=== PATIENT | female | born 1990 | race Caucasian/White ===

== ENCOUNTER 2022-01-28 22:59 | Emergency (ER) | payer OTHER ==
[~2022-01-28] VITALS: Ht 157.5 cm; Wt 75.0 kg
[2022-01-28] MEDS ORDERED: DexAMETHasone SOD PHOS 10MG/1ML VIAL INJ IV ONE (23:15)
[2022-01-28] MEDS ORDERED: FAMOTIDINE (10MG/ML) 2ML VL IV ONE (23:15)
[2022-01-29 00:41] VITALS: BP 124/82
[2022-01-29] MEDS ORDERED: PRED20TA2 PO (01:01)
== END 2022-01-29 01:13 | disposition home or self-care (01) ==
LOC: ER 22:59
DX: L23.9 Allergic contact dermatitis, unspecified cause (principal); Z88.8 Allergy status to other drugs, medicaments and biological substances
CPT/HCPCS: 96374; 96375; 99284; J1100; J3490

== ENCOUNTER 2022-10-13 00:17 | Emergency (ER) | payer OTHER ==
[~2022-10-13] VITALS: Ht 157.5 cm; Wt 75.0 kg
[~2022-10-13 00:17] MED LIST: PRED20TA2 PO
[2022-10-13] MEDS ORDERED: KETOROLAC TROMETH 30 MG/ML 1ML VIAL IV ONE (02:00)
[2022-10-13] MEDS ORDERED: HYDROcodone-ACET 5/325MG TAB PO ONE (02:15)
[2022-10-13] MEDS ORDERED: FAMOTIDINE (10MG/ML) 2ML VL IV ONE (02:15)
[2022-10-13 02:39] LABS: Basophils # (auto) 0 10 ^3/uL (0-0.2); Basophils % (auto) 0.2 % (0.0-2.0); Eosinophils # (auto) 0 10 ^3/uL (0-0.8); Eosinophils % (auto) 0.1 % (0.0-7.0); Hemoglobin 14.4 g/dL (12.2-16.2); Lymphocytes # (auto) 1.3 10 ^3/uL (0.4-5.4); Lymphocytes % (auto) 8.9 % (10.0-50.0); Mean Corpuscular Hgb Conc. 34.3 g/dL (32.0-36.0); Mean Corpuscular Volume 87.5 fL (80.0-100.0); Monocytes # (auto) 0.6 10 ^3/uL (0-1.3); Neutrophils # (auto) 12.8 10 ^3/uL (1.6-8.6); Neutrophils % (auto) 86.8 % (37.0-80.0); Red Blood Cells 4.79 10^6/uL (4.0-5.20); Red Cell Distribution Width 13.2 % (11.8-14.3); White Blood Cell 14.8 10^3/uL (4.4-10.8)
[2022-10-13 02:55] LABS: Alanine Aminotransferase 94 U/L (13-56); Albumin 3.5 g/dL (3.4-5.0); Anion Gap 7 (5-15); Aspartate Aminotransferase 129 U/L (15-37); BUN/Creatinine Ratio 15.6 (10.0-20.0); Blood Urea Nitrogen 10 mg/dL (7-18); Calcium 8.9 mg/dL (8.5-10.1); Carbon Dioxide 20 mmol/L (21-32); Chloride 110 mmol/L (98-107); GFR African American 137 mL/min; GFR Non-African American 113 mL/min; Glucose 107 mg/dL (74-106); Lipase 121 U/L (73-393); Magnesium 2.3 mg/dL (1.6-2.6); Potassium 3.8 mmol/L (3.5-5.1); Sodium 137 mmol/L (136-145)
[2022-10-13 02:58] LABS: Alkaline Phosphatase 155 U/L (45-117); Bilirubin, Total 0.6 mg/dL (0.2-1.0); Total Protein 7.7 g/dL (6.4-8.2)
[2022-10-13 06:32] LABS: Urine Bacteria FEW /hpf (None Seen); Urine Blood Negative /uL (Negative); Urine Mucus FEW (None Seen); Urine Specific Gravity 1.025 (1.001-1.035); Urine WBC 2 /hpf (0 - 5)
[2022-10-13] MEDS ORDERED: OXY5T GT (06:39)
[2022-10-13] MEDS ORDERED: ACET-1079 PO (06:39)
[2022-10-13] MEDS ORDERED: IBUP400T23 PO (06:39)
[2022-10-13] MEDS ORDERED: TAMS1CAP25 PO (06:44)
[2022-10-13 09:00] VITALS: BP 119/72
== END 2022-10-13 09:07 | disposition home or self-care (01) ==
LOC: EDUNIT# 00:17 → EDBD 00:17 → ER 00:17
DX: K80.20 Calculus of gallbladder without cholecystitis without obstruction (principal); N20.0 Calculus of kidney; J45.909 Unspecified asthma, uncomplicated; Z90.710 Acquired absence of both cervix and uterus; Z79.1 Long term (current) use of non-steroidal anti-inflammatories (NSAID); Z79.899 Other long term (current) drug therapy
CPT/HCPCS: 36415; 74176; 76705; 80053; 81001; 83690; 83735; 85025; 96374; 96375; 99285; J1885; J3490

== ENCOUNTER 2022-10-29 16:03 | Inpatient (IN) | payer OTHER ==
[~2022-10-29] VITALS: Ht 157.5 cm; Wt 79.4 kg
[~2022-10-29 16:03] MED LIST changes: +ACET-1079 PO; +IBUP1TAB4 PO; +OXY5T GT; +TAMS1CAP25 PO
[2022-10-29] MEDS ORDERED: SODIUM CHLORIDE 0.9% 1,000 ML IVB ONE (16:30)
[2022-10-29] MEDS ORDERED: PANTOPRAZOLE 40 MG/10 ML VIAL INJ IV ONE (16:30)
[2022-10-29] MEDS ORDERED: MORPHINE SULFATE 4 MG/ML SYR/VIAL IV ONE (16:30)
[2022-10-29] MEDS ORDERED: ONDANSETRON HCL 4 MG/2 ML VIAL IV ONE ×2 (16:30→19:30)
[2022-10-29 16:52] LABS: Urine Bacteria NONE SEEN /hpf (None Seen); Urine Blood Negative /uL (Negative); Urine Hyaline Cast FEW /lpf (0 - 2); Urine Mucus FEW (None Seen); Urine Specific Gravity 1.023 (1.001-1.035); Urine WBC 1 /hpf (0 - 5)
[2022-10-29 17:10] LABS: Basophils # (auto) 0 10 ^3/uL (0-0.2); Basophils % (auto) 0.2 % (0.0-2.0); Eosinophils # (auto) 0 10 ^3/uL (0-0.8); Eosinophils % (auto) 0.4 % (0.0-7.0); Hematocrit 40.6 % (36.0-46.0); Lymphocytes # (auto) 1.9 10 ^3/uL (0.4-5.4); Lymphocytes % (auto) 18.8 % (10.0-50.0); Mean Corpuscular Hgb Conc. 34.6 g/dL (32.0-36.0); Mean Corpuscular Volume 86.7 fL (80.0-100.0); Monocytes # (auto) 0.6 10 ^3/uL (0-1.3); Monocytes % (auto) 6.1 % (0.0-12.0); Neutrophils # (auto) 7.6 10 ^3/uL (1.6-8.6); Neutrophils % (auto) 74.5 % (37.0-80.0); Red Blood Cells 4.69 10^6/uL (4.0-5.20); Red Cell Distribution Width 13.2 % (11.8-14.3); White Blood Cell 10.3 10^3/uL (4.4-10.8)
[2022-10-29 17:38] LABS: INR 0.99 (0.9-1.15); Partial Thromboplastin Time 28.6 sec (24.6-33.4)
[2022-10-29 17:44] LABS: Albumin 3.8 g/dL (3.4-5.0); Calcium 9.2 mg/dL (8.5-10.1); Magnesium 2.1 mg/dL (1.6-2.6); Potassium 4.2 mmol/L (3.5-5.1)
[2022-10-29] MEDS ORDERED: MORPHINE SULFATE INJ 2 MG/ml SYRG IM ONE (17:45)
[2022-10-29] MEDS ORDERED: ONDANSETRON HCL 4 MG/2 ML VIAL IM ONE (17:45)
[2022-10-29 17:48] LABS: BUN/Creatinine Ratio 9.8 (10.0-20.0); Bilirubin, Total 1.2 mg/dL (0.2-1.0); Total Protein 7.3 g/dL (6.4-8.2)
[2022-10-29] MEDS ORDERED: HYDROmorphone HCL 2 MG/ML VL/or syr IM ONE (19:30)
[2022-10-29] MEDS ORDERED: cefTRIAXone 1GM/50ML D5W 50 ML IV ONE (21:15)
[2022-10-29] MEDS ORDERED: ALBUTEROL SULF 2.5 MG/0.5ML(0.5%) NEB SOLN NEB PRN (21:15)
[2022-10-29] MEDS ORDERED: MORPHINE SULFATE INJ 2 MG/ml SYRG IV PRN (21:15)
[2022-10-29 23:01] LABS: INR 0.97 (0.9-1.15); Partial Thromboplastin Time 27.9 sec (24.6-33.4)
[2022-10-30] MEDS: metroNIDAZOLE 500MG/100ML 100 ML IV SCH ×4 (00:12→21:37)
[2022-10-30] MEDS: SODIUM CHLORIDE 0.9% 1,000 ML IV SCH ×2 (00:12→10:50)
[2022-10-30] MEDS: ONDANSETRON HCL 4 MG/2 ML VIAL IV PRN ×4 (00:17→20:11)
[2022-10-30 02:22] VITALS: BP 105/69
[2022-10-30 05:08] LABS: Basophils # (auto) 0 10 ^3/uL (0-0.2); Basophils % (auto) 0.4 % (0.0-2.0); Eosinophils # (auto) 0.1 10 ^3/uL (0-0.8); Eosinophils % (auto) 0.7 % (0.0-7.0); Hematocrit 39.8 % (36.0-46.0); Hemoglobin 13.4 g/dL (12.2-16.2); Lymphocytes # (auto) 2.5 10 ^3/uL (0.4-5.4); Lymphocytes % (auto) 26.4 % (10.0-50.0); Mean Corpuscular Hemoglobin 29.8 pg (28.0-32.0); Mean Corpuscular Hgb Conc. 33.6 g/dL (32.0-36.0); Mean Corpuscular Volume 88.6 fL (80.0-100.0); Monocytes # (auto) 0.7 10 ^3/uL (0-1.3); Neutrophils # (auto) 6.3 10 ^3/uL (1.6-8.6); Neutrophils % (auto) 65.5 % (37.0-80.0); Nucleated Red Blood Cells % 0.1 %; Red Blood Cells 4.49 10^6/uL (4.0-5.20); Red Cell Distribution Width 13.1 % (11.8-14.3); White Blood Cell 9.6 10^3/uL (4.4-10.8)
[2022-10-30 05:30] LABS: Potassium 3.4 mmol/L (3.5-5.1)
[2022-10-30 05:39] LABS: Albumin 3.6 g/dL (3.4-5.0); BUN/Creatinine Ratio 12.5 (10.0-20.0); Calcium 8.6 mg/dL (8.5-10.1); Total Protein 7.5 g/dL (6.4-8.2)
[2022-10-30] MEDS: cefTRIAXone 1GM/50ML D5W 50 ML IV SCH (08:17)
[2022-10-30] MEDS: PANTOPRAZOLE 40 MG/10 ML VIAL INJ IV SCH (09:35)
[2022-10-30] MEDS: MORPHINE SULFATE INJ 2 MG/ml SYRG IV PRN (10:03)
[2022-10-30] MEDS: traMADol HCL 50 MG TAB PO PRN ×2 (13:31→18:01)
[2022-10-30] MEDS: D5W/SOD CHL 0.45%/KCL 20MEQ 1,000 ML IV SCH (15:12)
[2022-10-30 16:13] VITALS: BP 111/62
[2022-10-30 16:35] VITALS: BP 111/62
[2022-10-30] MEDS ORDERED: OXYC-900 PO (18:24)
[2022-10-30] MEDS ORDERED: TRAZ-228 PO (18:25)
[2022-10-30] MEDS ORDERED: ESTR0.3T PO (18:26)
[2022-10-30] MEDS ORDERED: BUSP10TA90 PO (18:27)
[2022-10-30] MEDS ORDERED: CALC-312 PO (18:32)
[2022-10-30] MEDS ORDERED: BIOT50007 PO (18:32)
[2022-10-30] MEDS ORDERED: AMPH10TA2 PO (18:32)
[2022-10-30] MEDS ORDERED: MULT-1018 PO (18:32)
[2022-10-30] MEDS ORDERED: HYDRX10T PO (18:32)
[2022-10-30] MEDS ORDERED: FEXO-42 PO (18:32)
[2022-10-30 20:00] VITALS: BP 110/59
[2022-10-30 22:00] VITALS: BP 110/59
[2022-10-31] MEDS ORDERED: diphenhdrAMINE HCL 25 MG CAP PO ONE (01:30)
[2022-10-31 05:00] VITALS: BP 97/53
[2022-10-31] MEDS: D5W/SOD CHL 0.45%/KCL 20MEQ 1,000 ML IV SCH ×3 (05:25→11:58)
[2022-10-31] MEDS: metroNIDAZOLE 500MG/100ML 100 ML IV SCH ×3 (05:26→22:22)
[2022-10-31] MEDS ORDERED: BUPIVACAINE 0.25% INJ 50ML VIAL ONE (06:46)
[2022-10-31] MEDS ORDERED: LIDOCAINE W/ EPINEPHRINE 1% 20ML VIAL ONE (06:46)
[2022-10-31] MEDS ORDERED: LIDOCAINE 2% JELLY 11ml (GLYDO) ONE (06:47)
[2022-10-31 06:50] LABS: Basophils # (auto) 0 10 ^3/uL (0-0.2); Basophils % (auto) 0.5 % (0.0-2.0); Eosinophils # (auto) 0.1 10 ^3/uL (0-0.8); Eosinophils % (auto) 1.7 % (0.0-7.0); Hematocrit 38.7 % (36.0-46.0); Hemoglobin 13.2 g/dL (12.2-16.2); Lymphocytes # (auto) 2.1 10 ^3/uL (0.4-5.4); Lymphocytes % (auto) 40.9 % (10.0-50.0); Mean Corpuscular Hemoglobin 29.9 pg (28.0-32.0); Mean Corpuscular Hgb Conc. 34.1 g/dL (32.0-36.0); Mean Corpuscular Volume 87.8 fL (80.0-100.0); Monocytes # (auto) 0.4 10 ^3/uL (0-1.3); Neutrophils # (auto) 2.5 10 ^3/uL (1.6-8.6); Neutrophils % (auto) 48.9 % (37.0-80.0); Red Blood Cells 4.41 10^6/uL (4.0-5.20); Red Cell Distribution Width 13.3 % (11.8-14.3); White Blood Cell 5.2 10^3/uL (4.4-10.8)
[2022-10-31 07:04] LABS: Albumin 3.1 g/dL (3.4-5.0); Calcium 8.5 mg/dL (8.5-10.1); Potassium 3.9 mmol/L (3.5-5.1)
[2022-10-31 07:08] LABS: BUN/Creatinine Ratio 6.7 (10.0-20.0); Bilirubin, Total 0.5 mg/dL (0.2-1.0); Total Protein 6.6 g/dL (6.4-8.2)
[2022-10-31] MEDS ORDERED: ceFAZolin 1GM/50ML 100 ML IV ONE (07:09)
[2022-10-31] MEDS ORDERED: MIDAZOLAM HCL 2MG/2ML 2ml VIAL (1mg/ml) ONE (07:33)
[2022-10-31] MEDS ORDERED: MEPERIDINE HCL (50 MG/ML) 1 ML VIAL ONE (07:33)
[2022-10-31] MEDS ORDERED: fentaNYL CITRATE 100 MCG/2 ML VL ONE (07:33)
[2022-10-31] MEDS ORDERED: DexAMETHasone SOD PHOS 10MG/1ML VIAL INJ ONE (08:23)
[2022-10-31] MEDS ORDERED: PROPOFOL 10 MG/ML 20 ML IV ONE (08:23)
[2022-10-31] MEDS ORDERED: SUGAMMADEX 200mg/2ml Vial (100MG/ML) IV ONE (08:51)
[2022-10-31] MEDS ORDERED: ROCURONIUM 10MG/ML 10ML VIAL IV ONE (09:00)
[2022-10-31] MEDS: cefTRIAXone 1GM/50ML D5W 50 ML IV SCH (09:00)
[2022-10-31] MEDS ORDERED: ePHEDrine SULFATE 50 MG/ML AMP IV PRN (09:15)
[2022-10-31] MEDS ORDERED: MIDAZOLAM HCL 2MG/2ML 2ml VIAL (1mg/ml) IV PRN (09:15)
[2022-10-31] MEDS ORDERED: ONDANSETRON HCL 4 MG/2 ML VIAL IV PRN (09:15)
[2022-10-31] MEDS ORDERED: MORPHINE SULFATE 4 MG/ML SYR/VIAL IV PRN (09:15)
[2022-10-31] MEDS ORDERED: LABETALOL HCL 5 MG/ML 4ML SYRINGE IV PRN (09:15)
[2022-10-31] MEDS ORDERED: KETOROLAC TROMETH 30 MG/ML 1ML VIAL IV ONE (09:15)
[2022-10-31] MEDS ORDERED: HYDROmorphone HCL 2 MG/ML VL/or syr ONE (09:24)
[2022-10-31] MEDS: HYDROmorphone HCL 2 MG/ML VL/or syr IV PRN ×3 (09:25→10:05)
[2022-10-31] MEDS: PANTOPRAZOLE 40 MG/10 ML VIAL INJ IV SCH (11:56)
[2022-10-31 12:00] VITALS: BP 109/61
[2022-10-31] MEDS: ONDANSETRON HCL 4 MG/2 ML VIAL IV PRN ×2 (15:26→22:22)
[2022-10-31] MEDS: MORPHINE SULFATE INJ 2 MG/ml SYRG IV PRN ×2 (15:29→22:23)
[2022-10-31 16:00] VITALS: BP 139/31
[2022-10-31] MEDS: traMADol HCL 50 MG TAB PO PRN (19:19)
[2022-10-31 20:13] VITALS: BP 100/60
[2022-10-31 20:52] LABS: BUN/Creatinine Ratio 5.1 (10.0-20.0); Calcium 9.5 mg/dL (8.5-10.1); Potassium 3.9 mmol/L (3.5-5.1)
[2022-10-31 22:00] VITALS: BP 100/60
[2022-10-31] MEDS ORDERED: DOCUSATE SOD 100 MG CAP PO PRN (22:15)
[2022-11-01] MEDS: D5W/SOD CHL 0.45%/KCL 20MEQ 1,000 ML IV SCH (01:32)
[2022-11-01 05:13] VITALS: BP 106/61
[2022-11-01] MEDS: ONDANSETRON HCL 4 MG/2 ML VIAL IV PRN ×2 (05:30→11:11)
[2022-11-01] MEDS: metroNIDAZOLE 500MG/100ML 100 ML IV SCH (05:31)
[2022-11-01] MEDS: MORPHINE SULFATE INJ 2 MG/ml SYRG IV PRN (05:31)
[2022-11-01 06:08] LABS: Basophils # (auto) 0 10 ^3/uL (0-0.2); Basophils % (auto) 0.2 % (0.0-2.0); Eosinophils # (auto) 0 10 ^3/uL (0-0.8); Eosinophils % (auto) 0.3 % (0.0-7.0); Hematocrit 38.2 % (36.0-46.0); Lymphocytes # (auto) 2.4 10 ^3/uL (0.4-5.4); Lymphocytes % (auto) 23.4 % (10.0-50.0); Mean Corpuscular Hemoglobin 29.9 pg (28.0-32.0); Mean Corpuscular Hgb Conc. 34.2 g/dL (32.0-36.0); Mean Corpuscular Volume 87.5 fL (80.0-100.0); Monocytes # (auto) 0.6 10 ^3/uL (0-1.3); Monocytes % (auto) 5.8 % (0.0-12.0); Neutrophils # (auto) 7.2 10 ^3/uL (1.6-8.6); Neutrophils % (auto) 70.3 % (37.0-80.0); Nucleated Red Blood Cells % 0.1 %; Red Blood Cells 4.36 10^6/uL (4.0-5.20); Red Cell Distribution Width 13.3 % (11.8-14.3); White Blood Cell 10.2 10^3/uL (4.4-10.8)
[2022-11-01 06:16] LABS: Albumin 3.1 g/dL (3.4-5.0); Calcium 8.5 mg/dL (8.5-10.1); Potassium 3.8 mmol/L (3.5-5.1)
[2022-11-01 06:20] LABS: BUN/Creatinine Ratio 4.1 (10.0-20.0); Bilirubin, Total 0.3 mg/dL (0.2-1.0); Total Protein 6.7 g/dL (6.4-8.2)
[2022-11-01 09:00] VITALS: BP 94/61
[2022-11-01] MEDS: cefTRIAXone 1GM/50ML D5W 50 ML IV SCH (09:38)
[2022-11-01] MEDS: PANTOPRAZOLE 40 MG/10 ML VIAL INJ IV SCH (09:38)
[2022-11-01] MEDS: traMADol HCL 50 MG TAB PO PRN (11:05)
[2022-11-01] MEDS ORDERED: LEVO500T31 PO (11:36)
[2022-11-01] MEDS ORDERED: TRAM50TA2 PO (11:36)
[2022-11-01] MEDS ORDERED: DOCU-94 PO (11:36)
[2022-11-01] MEDS ORDERED: METR500T PO (11:36)
== END 2022-11-01 13:05 | disposition home or self-care (01) | DRG 419 ==
LOC: ER 16:03 → OVERFLOW 21:14 → WEST WING 10-30 15:57
PROVIDERS: ADMIT Nurse Practitioner; ATTEND Internal Medicine
PROC: 0FT44ZZ Resection of Gallbladder, Percutaneous Endoscopic Approach (ICD-10-PCS; principal; 2022-10-31 07:43)
DX: K80.00 Calculus of gallbladder with acute cholecystitis without obstruction (principal); J45.909 Unspecified asthma, uncomplicated; E66.9 Obesity, unspecified; F41.9 Anxiety disorder, unspecified; Z79.899 Other long term (current) drug therapy; Z87.442 Personal history of urinary calculi; Z90.710 Acquired absence of both cervix and uterus; Z98.84 Bariatric surgery status; Z98.891 History of uterine scar from previous surgery; Z68.32 Body mass index [BMI] 32.0-32.9, adult
CPT/HCPCS: 36415; 71045; 76705; 78226; 80048; 80053; 81001; 83690; 83735; 84702; 85025; 85610; 85730; 86850; 86900; 86901; 96361; 96372; 96375; C9113; G0378; J0690; J0696; J1100; J2250; J2405; J2704; J3490

== ENCOUNTER → 2023-10-12 | Outpatient (CLI) | payer OTHER ==
[~2023-10-12] MED LIST changes: -ACET-1079 PO; +AMPH10TA2 PO; +BIOT50007 PO; +BUSP10TA90 PO; +CALC-312 PO; +DOCU-94 PO; +ESTR0.3T PO; +FEXO-42 PO; +HYDRX10T PO; -IBUP1TAB4 PO; +LEVO500T31 PO; +METR500T PO; +MULT-1018 PO; -OXY5T GT; +OXYC-900 PO; -PRED20TA2 PO; -TAMS1CAP25 PO; +TRAM50TA2 PO; +TRAZ-228 PO
[2023-10-12 14:00] LABS: Basophils # (auto) 0 10 ^3/uL (0-0.2); Basophils % (auto) 0.4 % (0.0-2.0); Eosinophils # (auto) 0.1 10 ^3/uL (0-0.8); Eosinophils % (auto) 0.6 % (0.0-7.0); Hematocrit 40.9 % (36.0-46.0); Hemoglobin 13.7 g/dL (12.2-16.2); Lymphocytes # (auto) 2.3 10 ^3/uL (0.4-5.4); Lymphocytes % (auto) 25.2 % (10.0-50.0); Mean Corpuscular Hemoglobin 30.3 pg (28.0-32.0); Mean Corpuscular Hgb Conc. 33.6 g/dL (32.0-36.0); Mean Corpuscular Volume 90.2 fL (80.0-100.0); Monocytes # (auto) 0.4 10 ^3/uL (0-1.3); Monocytes % (auto) 3.9 % (0.0-12.0); Neutrophils # (auto) 6.4 10 ^3/uL (1.6-8.6); Neutrophils % (auto) 69.9 % (37.0-80.0); Nucleated Red Blood Cells % 0.1 %; Red Blood Cells 4.53 10^6/uL (4.0-5.20); Red Cell Distribution Width 13.2 % (11.8-14.3); White Blood Cell 9.1 10^3/uL (4.4-10.8)
[2023-10-12 14:30] LABS: Alanine Aminotransferase 13 U/L (7-40); Albumin 4.6 g/dL (3.2-4.8); Alkaline Phosphatase 87 U/L (46-116); Anion Gap 8 (5-15); Aspartate Aminotransferase 15 U/L (13-40); BUN/Creatinine Ratio 9.3 (10.0-20.0); Bilirubin, Total 0.3 mg/dL (0.2-1.0); Blood Urea Nitrogen 8 mg/dL (9-23); Carbon Dioxide 26 mmol/L (20-30); Chloride 104 mmol/L (98-107); Erythrocyte Sedimentation Rate 11 mm/hr (0-20); Glucose 104 mg/dL (74-106); Potassium 4.2 mmol/L (3.5-5.1); Sodium 138 mmol/L (136-145); Total Protein 7.1 g/dL (5.7-8.2)
== END | disposition home or self-care (01) ==
LOC: LAB 13:38
PROVIDERS: ATTEND Student in an Organized Health Care Education/Training Program
DX: R73.9 Hyperglycemia, unspecified (principal); R21 Rash and other nonspecific skin eruption
CPT/HCPCS: 36415; 80053; 85025; 85652

== ENCOUNTER 2024-06-07 11:16 | Inpatient (IN) | payer OTHER ==
[~2024-06-07] VITALS: Ht 157.5 cm; Wt 67.8 kg
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
[2024-06-07] MEDS: HYDROcodone-ACET 10/325MG TAB PO ONE (12:58)
--- NOTE | 2024-06-07 13:06 | DVH ---
INDICATION: fall COMPARISON: None TECHNIQUE: Frontal, lateral and oblique views of the lumbar spine were obtained. FINDINGS: The lumbar vertebral alignment is normal. The intervertebral disc spaces are well-maintained. No significant facet arthropathy is noted. No acute fracture or significant compression deformity in the lumbar spine. There is a T11 compressi on deformity causing less than 25% vertebral body height loss of indeterminate age. The paravertebral soft tissues are grossly unremarkable. IMPRESSION: 1. No acute fracture of the lumbar spine. 2. Age-indeterminate T11 compression deformity. This is new since a prior CT of the abdomen pelvis fr om 10/13/2022. Acute fracture is not excluded. CT of the thoracic spine may be obtained for further evaluation.
[2024-06-07] MEDS ORDERED: HYDROcodone-ACET 5/325MG TAB PO PRN (18:00)
[2024-06-07] MEDS ORDERED: ACETAMINOPHEN 325 MG TAB PO PRN (18:00)
[2024-06-07] MEDS ORDERED: DOCUSATE SOD 100 MG CAP PO PRN (18:00)
[2024-06-07] MEDS: ONDANSETRON HCL 4 MG/2 ML VIAL IV ONE (18:44)
[2024-06-07] MEDS: MORPHINE SULFATE 4 MG/ML SYR/VIAL IV ONE (18:45)
[2024-06-07] MEDS: SODIUM CHLORIDE 0.9% 1,000 ML IV ONE (18:47)
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
[2024-06-07] MEDS ORDERED: NITROGLYCERIN 0.4 MG SL TAB SL PRN (19:00)
[2024-06-07] MEDS ORDERED: MORPHINE SULFATE INJ 2 MG/ml SYRG IV PRN (19:00)
[2024-06-07 19:06] LABS: Basophils # (auto) 0 10 ^3/uL (0-0.2); Basophils % (auto) 0.1 % (0.0-2.0); Eosinophils # (auto) 0 10 ^3/uL (0-0.8); Hematocrit 44.4 % (36.0-46.0); Hemoglobin 15.2 g/dL (12.2-16.2); Lymphocytes # (auto) 1.1 10 ^3/uL (0.4-5.4); Lymphocytes % (auto) 10.1 % (10.0-50.0); Mean Corpuscular Hemoglobin 31.4 pg (28.0-32.0); Mean Corpuscular Hgb Conc. 34.2 g/dL (32.0-36.0); Mean Corpuscular Volume 91.8 fL (80.0-100.0); Monocytes # (auto) 0.3 10 ^3/uL (0-1.3); Monocytes % (auto) 2.5 % (0.0-12.0); Neutrophils # (auto) 9.4 10 ^3/uL (1.6-8.6); Neutrophils % (auto) 87.3 % (37.0-80.0); Platelet Count (auto) 207 10^3/uL (140-450); Red Blood Cells 4.83 10^6/uL (4.0-5.20); White Blood Cell 10.7 10^3/uL (4.4-10.8)
[2024-06-07 19:13] LABS: Chloride 103 mmol/L (98-107); Potassium 3.7 mmol/L (3.5-5.1); Sodium 136 mmol/L (136-145)
[2024-06-07 19:14] LABS: Anion Gap 8 (5-15); Calcium 9.7 mg/dL (8.7-10.4); Carbon Dioxide 25 mmol/L (20-31)
[2024-06-07 19:19] LABS: Glucose 99 mg/dL (74-106)
[2024-06-07 19:22] LABS: Blood Urea Nitrogen 9 mg/dL (9-23)
[2024-06-07 20:00] VITALS: BP 93/59; PULSE 83; RESP 18; TEMP 97.6; O2SAT 100
--- NOTE | 2024-06-07 20:25 | DVH ---
EXAM: CT THORACIC SPINE WO CONTRAS INDICATION: Back pain COMPARISON: None TECHNIQUE: Multiple axial CT images of the thoracic spine were obtained using bone algorithm. Axial and coronal reformatting was done. Bone and soft tissue windows were reviewed. Radiation Dose Information: CT Dose: CTDI volume is 8.41 mGy. Dose-length product is 351.83 mGy*cm FINDINGS: Gallbladder appears to have been surgically removed. No CT evidence of acute fracture or traumatic mal-alignment. The visualized paraspinal soft tissues a re grossly unremarkable. There is no central canal stenosis. If thoracic disc disease is of clinical concern recommend MRI or repeat CT scan with intrathecal cont rast. ( thoracic myelogram followed by CT) Minimal compression superior endplate of T11. No bony displacement or stenosis of the central canal. Incidentally seen is nonobstructing punctate calculus left kidney. IMPRESSION: 1. Mild compression superior endplate of T11 without bony displacement. 2. No central spinal canal stenosis. Radiation optimization: All CT scans at this facility use at least one of these dose optimization richard hniques: automated exposure control mA and/or kV adjustment per patient size (includes targeted exam s where dose is matched to clinical indication) or iterative reconstruction.
[2024-06-07 21:30] VITALS: BP 98/64; PULSE 86; RESP 18; TEMP 97.8; O2SAT 100
[2024-06-08] VITALS (8 sets, daily range): BP systolic 103–122; BP diastolic 60–72; PULSE 67–97; RESP 16–18; TEMP 97.6–98.5; O2SAT 97–100
[2024-06-08] MEDS: traZODone HCL 50 MG TAB PO SCH (00:24)
[2024-06-08] MEDS: CALCIUM CARB 500 MG CHEW TAB PO SCH (00:25)
[2024-06-08] MEDS: busPIRone HCL 10 MG TAB PO SCH (00:25)
[2024-06-08] MEDS: SODIUM CHLOR 0.9% PF (SALINE LOCK) 10ML VIAL/SYR IV SCH (00:36)
[2024-06-08] MEDS: MORPHINE SULFATE INJ 2 MG/ml SYRG IV PRN (03:50)
[2024-06-08 06:48] LABS: Albumin 3.7 g/dL (3.2-4.8); Alkaline Phosphatase 76 U/L (46-116); Anion Gap 8 (5-15); BUN/Creatinine Ratio 9.2 (10.0-20.0); Bilirubin, Total 0.5 mg/dL (0.2-1.0); Calcium 9.2 mg/dL (8.7-10.4); Carbon Dioxide 27 mmol/L (20-31); Chloride 105 mmol/L (98-107); Glucose 97 mg/dL (74-106); Sodium 140 mmol/L (136-145); Total Protein 5.7 g/dL (5.7-8.2)
[2024-06-08 06:49] LABS: Basophils # (auto) 0 10 ^3/uL (0-0.2); Basophils % (auto) 0.4 % (0.0-2.0); Eosinophils # (auto) 0.1 10 ^3/uL (0-0.8); Eosinophils % (auto) 0.9 % (0.0-7.0); Hematocrit 36.6 % (36.0-46.0); Hemoglobin 12.9 g/dL (12.2-16.2); Lymphocytes # (auto) 2.4 10 ^3/uL (0.4-5.4); Lymphocytes % (auto) 31.9 % (10.0-50.0); Mean Corpuscular Hemoglobin 31.8 pg (28.0-32.0); Mean Corpuscular Hgb Conc. 35.1 g/dL (32.0-36.0); Mean Corpuscular Volume 90.4 fL (80.0-100.0); Monocytes # (auto) 0.6 10 ^3/uL (0-1.3); Monocytes % (auto) 8.6 % (0.0-12.0); Neutrophils # (auto) 4.3 10 ^3/uL (1.6-8.6); Neutrophils % (auto) 58.2 % (37.0-80.0); Platelet Count (auto) 174 10^3/uL (140-450); Red Blood Cells 4.05 10^6/uL (4.0-5.20); Red Cell Distribution Width 12.6 % (11.8-14.3); White Blood Cell 7.4 10^3/uL (4.4-10.8)
[2024-06-08 06:55] LABS: Aspartate Aminotransferase 12 U/L (13-40); Blood Urea Nitrogen 6 mg/dL (9-23); Potassium 3.2 mmol/L (3.5-5.1)
[2024-06-08 06:56] LABS: Alanine Aminotransferase < 9 U/L (7-40)
[2024-06-08 08:11] LABS: Urine Bacteria None Seen /hpf (None Seen); Urine WBC None Seen /hpf (0 - 5)
[2024-06-08 08:17] LABS: Urine Blood Negative /uL (Negative); Urine Clarity Clear (Clear); Urine Color Light-Yellow (Yellow); Urine Protein, UAD Negative (Negative); Urine Specific Gravity 1.006 (1.001-1.035); Urine Squamous Epithelial Cell FEW /hpf (<5); Urine Urobilinogen Normal (Negative); Urine pH 6.5 (5.0-9.0)
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
[2024-06-09] VITALS (8 sets, daily range): BP systolic 89–109; BP diastolic 43–62; PULSE 66–78; RESP 16–20; TEMP 97.5–98.3; O2SAT 96–99
[2024-06-09] MEDS: HYDROcodone-ACET 10/325MG TAB PO PRN (09:47)
[2024-06-09] MEDS: ONDANSETRON HCL 4 MG/2 ML VIAL IV PRN (09:47)
[2024-06-09] MEDS ORDERED: METH4PAK PO (17:11)
[2024-06-09] MEDS ORDERED: HYDR-4798 PO (17:11)
[2024-06-09] MEDS ORDERED: NALO4SPR2 (17:11)
[2024-06-10 01:00] VITALS: BP 91/49; PULSE 78; RESP 18; TEMP 98.1; O2SAT 97
[2024-06-10 05:00] VITALS: BP 92/52; PULSE 80; RESP 18; TEMP 97.9; O2SAT 98
[2024-06-10 09:00] VITALS: BP 85/47; PULSE 76; RESP 16; TEMP 98; O2SAT 98
[2024-06-10 13:00] VITALS: BP 90/55; PULSE 79; RESP 14; TEMP 98.4; O2SAT 97
--- NOTE | 2024-06-10 14:16 | DVHDS2 ---
Discharge Summary Date of Admission Jun 07, 2024 at 18:46 Date of Discharge: Jun 10, 2024 Labs/Diagnostic Data: Laboratory Results Test 06/08/24 07:30 06/08/24 05:47 Urine Color Light-yellow (Yellow) Urine Clarity Clear (Clear) Urine pH 6.5 (5.0-9.0) Urine Specific [place] 1.006 (1.001-1.035) Urine Protein Negative (Negative) Urine Ketones Negative (Negative) Urine Blood Negative /uL (Negative) Urine Nitrite Negative (Negative) Urine Bilirubin Negative (Negative) Urine Urobilinogen Normal mg/dL (Negative) Urine Leukocyte Esterase Negative /uL (Negative) Urine RBC 1 /hpf (0 - 4) Urine WBC None seen /hpf (0 - 5) Urine Squamous Epithelial Cells Few /hpf (<5) Urine Bacteria None seen /hpf (None Seen) Urine Glucose Normal mg/dL (Normal) White Blood Count 7.4 10^3/uL (4.4-10.8) Red Blood Count 4.05 10^6/uL (4.0-5.20) Hemoglobin 12.9 g/dL (12.2-16.2) Hematocrit 36.6 % (36.0-46.0) Mean Corpuscular Volume 90.4 fL (80.0-100.0) Mean Corpuscular Hemoglobin 31.8 pg (28.0-32.0) Mean Corpuscular Hemoglobin Concent 35.1 g/dL (32.0-36.0) Red Cell Distribution Width 12.6 % (11.8-14.3) Platelet Count 174 10^3/uL (140-450) Mean Platelet Volume 8.5 fL (6.9-10.8) Neutrophils (%) (Auto) 58.2 % (37.0-80.0) Lymphocytes (%) (Auto) 31.9 % (10.0-50.0) Monocytes (%) (Auto) 8.6 % (0.0-12.0) Eosinophils (%) (Auto) 0.9 % (0.0-7.0) Basophils (%) (Auto) 0.4 % (0.0-2.0) Neutrophils # (Auto) 4.3 10 ^3/uL (1.6-8.6) Lymphocytes # (Auto) 2.4 10 ^3/uL (0.4-5.4) Monocytes # (Auto) 0.6 10 ^3/uL (0-1.3) Eosinophils # (Auto) 0.1 10 ^3/uL (0-0.8) Basophils # (Auto) 0 10 ^3/uL (0-0.2) Nucleated Red Blood Cells 0.0 % Sodium Level 140 mmol/L (136-145) Potassium Level 3.2 mmol/L (3.5-5.1) Chloride Level 105 mmol/L (98-107) Carbon Dioxide Level 27 mmol/L (20-31) Anion Gap 8 (5-15) Blood Urea Nitrogen 6 mg/dL (9-23) Creatinine 0.65 mg/dL (0.550-1.02) Glomerular Filtration Rate Calc 118 mL/min (>90) BUN/Creatinine Ratio 9.2 (10.0-20.0) Serum Glucose 97 mg/dL (74-106) Calcium Level 9.2 mg/dL (8.7-10.4) Total Bilirubin 0.5 mg/dL (0.2-1.0) Aspartate Amino Transferase (AST) 12 U/L (13-40) Alanine Aminotransferase (ALT) < 9 U/L (7-40) Alkaline Phosphatase 76 U/L (46-116) Total Protein 5.7 g/dL (5.7-8.2) Albumin 3.7 g/dL (3.2-4.8) Other Laboratory Tests 06/08/24 05:47 Brief Hx & Hospital Course: see dictated note Condition at Discharge: Good Final Diagnosis/Problems List BACK PAIN Discharge Disposition: Home Discharge Instruct/Medications Diet: Regular Activity: See Comment Activity comment: No driving, no signing legal documents and no playing on heavy machinery while on narcotics Follow Up/Referral: Follow up with the PCP in 1-2 weeks Follow up with Dr.Samir Breaux in one week Medications: [place], Narcan, Medrol Dosepak as prescribed Discharge Statement: "Patient was advised to return to the ER or call 911 if any headaches, dizziness, shortness of breath, chest pain, abdominal pain, bleeding, fevers, or worsening of medical condition. Patient was counseled about treatment plan, medications, possible side effects, patientverbalized understanding. All questions were answered to the best of my ability. This discharge took greater then 30 minutes in planning, reviewing documentation, counseling the patient, and discussing with other team members." ASSESSMENT ASSESSMENT Assessment BACK PAIN Date of Service: Jun 10, 2024 Billing Provider: SANDRA GOLDBERG MD Common Visit Codes: 80172-[id number]/[id number] DISCH DAY >30min SANDRA GOLDBERG MD Jun 10, 2024 14:16
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
== END 2024-06-10 15:57 | disposition home or self-care (01) | DRG 552 ==
LOC: ER 11:16 → EDBD 11:16 → EDUNIT# 11:16 → OVERFLOW 18:46 → WEST WING 18:49
PROVIDERS: ADMIT Nurse Practitioner Family; ATTEND Internal Medicine
DX: S22.080A Wedge compression fracture of T11-T12 vertebra, initial encounter for closed fracture (principal); J45.909 Unspecified asthma, uncomplicated; F41.9 Anxiety disorder, unspecified; Y04.2XXA Assault by strike against or bumped into by another person, initial encounter; Z88.5 Allergy status to narcotic agent; Z87.442 Personal history of urinary calculi; Z90.710 Acquired absence of both cervix and uterus; Y93.89 Activity, other specified; Y92.89 Other specified places as the place of occurrence of the external cause; Y99.8 Other external cause status
CPT/HCPCS: 36415; 72110; 72128; 80048; 80053; 81001; 85025; 96374; 96375; G0378; J2405